=== PATIENT | female | born 1965 | race Caucasian/White ===

== ENCOUNTER 2017-02-14 13:57 | Inpatient (IN) | payer BC ==
[~2017-02-14] VITALS: Ht 165.1 cm; Wt 101.9 kg
[2017-03-13] VITALS (15 sets, daily range): BP systolic 107–132; BP diastolic 68–83; PULSE 84–104; TEMP 97.5–98.7
[2017-03-13] MEDS ORDERED: TYLENOL 325MG325 MG PO (06:35)
[2017-03-13] MEDS ORDERED: NATURE'S BLEND600 M2 PO (06:35)
[2017-03-13] MEDS ORDERED: ASPIRIN E.C. 8181 MG PO (06:36)
[2017-03-13] MEDS ORDERED: FLAX OIL1000 MG PO (06:37)
[2017-03-13] MEDS ORDERED: ZESTRIL 20MG TA20 MG PO (06:38)
[2017-03-13] MEDS ORDERED: SYNTHROID0.05 MG/TA PO (06:38)
[2017-03-13] MEDS ORDERED: LOPRESSOR 225 MG/TAB PO (06:39)
[2017-03-13] MEDS ORDERED: PERCOCET 325 MG1 TA2 PO (06:40)
[2017-03-13 07:01] LABS: ADJUSTED CALCIUM 9.2 mg/dL (8.4-10.2); ALBUMIN 4.5 gm/dL (3.5-5.0); BILIRUBIN,TOTAL 0.7 mg/dL (0.0-1.0); CALCIUM 9.6 mg/dL (8.4-10.2); CREATININE, serum 0.61 mg/dL (0.52-1.25); HEMATOCRIT 42.7 % (37.0-47.0); HEMOGLOBIN 13.8 g/dl (12.5-16.0); MEAN CELL VOLUME 88 fl (80.0-100.0); MEAN CORPUSCULAR HEMOGLOBIN 29 pg (27.0-31.0); MEAN CORPUSCULAR HGB CONC 32 g/dl (33.0-37.0); MEAN PLATELET VOLUME 10.7 fl (7.4-10.4); PLATELET COUNT 358 K/mm3 (130-400); POTASSIUM 4.3 mmol/L (3.4-5.0); RED BLOOD COUNT 4.85 M/mm3 (4.10-5.30); TOTAL PROTEIN 7.5 gm/dL (6.4-8.2); WHITE BLOOD COUNT 10.1 K/mm3 (4.8-10.8)
[2017-03-13 15:16] LABS: BASO # 0.1 (0.0-0.2); BASO % 0.4 % (0.0-2.0); GRAN # 15.5 (1.4-6.5); GRAN % 93.7 % (42.2-75.2); HEMOGLOBIN 13.7 g/dl (12.5-16.0); LYMPH # 0.6 (1.2-3.4); LYMPH % 3.8 % (20.0-51.0); MEAN CELL VOLUME 87 fl (80.0-100.0); MEAN CORPUSCULAR HEMOGLOBIN 29 pg (27.0-31.0); MEAN CORPUSCULAR HGB CONC 33 g/dl (33.0-37.0); MEAN PLATELET VOLUME 10.1 fl (7.4-10.4); MONO # 0.3 (0.1-0.6); MONO % 1.6 % (1.7-9.3); PLATELET COUNT 319 K/mm3 (130-400); RED BLOOD COUNT 4.81 M/mm3 (4.10-5.30); WHITE BLOOD COUNT 16.5 K/mm3 (4.8-10.8)
[2017-03-14] VITALS (9 sets, daily range): BP systolic 103–117; BP diastolic 48–72; PULSE 72–95; TEMP 97.6–98.7
[2017-03-14 07:26] LABS: BASO # 0.1 (0.0-0.2); BASO % 0.4 % (0.0-2.0); EOS # 0.3 (0.0-0.7); EOS % 2.2 % (0-4.0); GRAN # 12.7 (1.4-6.5); GRAN % 82.3 % (42.2-75.2); HEMATOCRIT 39.9 % (37.0-47.0); HEMOGLOBIN 12.9 g/dl (12.5-16.0); LYMPH # 1.3 (1.2-3.4); LYMPH % 8.1 % (20.0-51.0); MEAN CELL VOLUME 88 fl (80.0-100.0); MEAN CORPUSCULAR HEMOGLOBIN 28 pg (27.0-31.0); MEAN CORPUSCULAR HGB CONC 32 g/dl (33.0-37.0); MEAN PLATELET VOLUME 10.6 fl (7.4-10.4); MONO % 6.4 % (1.7-9.3); PLATELET COUNT 299 K/mm3 (130-400); RED BLOOD COUNT 4.54 M/mm3 (4.10-5.30); WHITE BLOOD COUNT 15.4 K/mm3 (4.8-10.8)
[2017-03-14 07:46] LABS: CALCIUM 8.8 mg/dL (8.4-10.2); CREATININE, serum 0.89 mg/dL (0.52-1.25); POTASSIUM 4.4 mmol/L (3.4-5.0)
[2017-03-15 05:18] VITALS: BP 118/62; PULSE 90; TEMP 98.2
[2017-03-15 09:57] VITALS: BP 119/60; PULSE 92; TEMP 97.5
[2017-03-15 13:11] VITALS: BP 127/67; PULSE 98; TEMP 98.2
[2017-03-15 15:15] VITALS: BP 112/71
[2017-03-15 17:45] VITALS: BP 102/53; PULSE 88; TEMP 97.7
[2017-03-15 19:30] VITALS: BP 93/56
[2017-03-16 02:20] VITALS: BP 105/58; PULSE 86; TEMP 98
[2017-03-16 05:35] VITALS: BP 111/53; PULSE 80; TEMP 98.1
[2017-03-16 09:51] VITALS: BP 121/75; PULSE 87
== END 2017-03-16 13:10 | disposition home or self-care (01) | DRG 661 ==
LOC: SURG 03-12 07:30 → INPTSU 03-13 05:19 → SURG 03-13 05:19
PROVIDERS: Nurse Anesthetist, Certified Registered; Urology
PROC: 0TT00ZZ Resection of Right Kidney, Open Approach (ICD-10-PCS; principal; 2017-03-13 07:30)
DX: N28.1 Cyst of kidney, acquired (principal); I10 Essential (primary) hypertension
CPT/HCPCS: A4314; A4315; A9284; J0690; J1100; J1170; J1650; J2270; J2405; J2704; J3010; J3480; J7120

== ENCOUNTER → 2017-03-11 | Outpatient (CLI) | payer BC ==
[~2017-03-11] MED LIST: ASPIRIN E.C. 8181 MG PO; FLAX OIL1000 MG PO; LOPRESSOR 225 MG/TAB PO; NATURE'S BLEND600 M2 PO; PERCOCET 325 MG1 TA2 PO; SYNTHROID0.05 MG/TA PO; TYLENOL 325MG325 MG PO; ZESTRIL 20MG TA20 MG PO
== END ==
LOC: COL.LAB 11:13
DX: Z01.812 Encounter for preprocedural laboratory examination (principal); N28.1 Cyst of kidney, acquired

== ENCOUNTER 2021-08-01 13:18 | Observation (INO) | payer OTHER ==
[~2021-08-01] VITALS: Ht 165.1 cm; Wt 104.5 kg
[2021-08-01] MEDS ORDERED: MULTI VITAMINS1 TAB PO (13:39)
[2021-08-01] MEDS ORDERED: VITAMIN D 50,1.25 MG PO (13:39)
[2021-08-01 14:37] LABS: BASO # 0.1 K/mm3 (0.0-0.2); BASO % 0.4 % (0.0-2.0); EOS # 0.2 K/mm3 (0.0-0.7); GRAN # 11.1 K/mm3 (1.4-6.5); GRAN % 73.1 % (42.2-75.2); HEMATOCRIT 43.7 % (37.0-47.0); HEMOGLOBIN 14.5 g/dl (12.5-16.0); LYMPH # 2.9 K/mm3 (1.2-3.4); LYMPH % 19.3 % (20.0-51.0); MEAN CELL VOLUME 86 fl (80.0-100.0); MEAN CORPUSCULAR HEMOGLOBIN 29 pg (27-31); MEAN CORPUSCULAR HGB CONC 33 g/dl (33.0-37.0); MEAN PLATELET VOLUME 10.7 fl (7.4-10.4); MONO # 0.9 K/mm3 (0.1-0.6); MONO % 5.8 % (1.7-9.3); PLATELET COUNT 371 K/mm3 (130-400); RED BLOOD COUNT 5.07 M/mm3 (4.10-5.30); REDCELL DISTRIBUTION WIDTH-CV 13.2 % (11.5-14.5)
[2021-08-01 14:52] LABS: ALBUMIN 3.8 gm/dL (3.5-5.0); BILIRUBIN,TOTAL 0.6 mg/dL (0.2-1.2); CREATININE, serum 0.82 mg/dL (0.57-1.11); POTASSIUM 3.7 mmol/L (3.5-4.5); TOTAL PROTEIN 7.7 gm/dL (6.2-8.1)
[2021-08-01 16:00] VITALS: BP 151/81; PULSE 81; TEMP 98.5
[2021-08-01 16:27] VITALS: BP 110/56; PULSE 102; TEMP 99
--- NOTE | 2021-08-01 18:23 | NUR ---
Pt has had minimal pain to RLQ after arrival to the floor. 20g started to R hand, IVF started. POC discussed with patient, to have surgery tomorrow AM. Clear liquids offered. No needs at this time. Call light within reach.
[2021-08-01 19:46] VITALS: BP 115/63; PULSE 104; TEMP 99.5
[2021-08-02] VITALS (11 sets, daily range): BP systolic 107–151; BP diastolic 61–85; PULSE 81–101; TEMP 98.4–99
--- NOTE | 2021-08-02 03:29 | NUR ---
Report received from day shift nurse, PAULINA Griffith. Patient has been pleasant throughout the shift and is A&Ox3. Full body assessment completed and vital signs have been WNL. Patient has not complained of pain thus far this shift, however she says that she does feel "bloated". IV fluids currently running, patient has been tolerating IV zosyn well. Patient scheduled for possible surgery on 08/02/21. No other complaints at this time, call light within reach.
[2021-08-02 06:20] LABS: HEMATOCRIT 38.5 % (37.0-47.0); HEMOGLOBIN 12.9 g/dl (12.5-16.0); MEAN CELL VOLUME 85 fl (80.0-100.0); MEAN CORPUSCULAR HEMOGLOBIN 29 pg (27-31); MEAN CORPUSCULAR HGB CONC 34 g/dl (33.0-37.0); MEAN PLATELET VOLUME 10.7 fl (7.4-10.4); PLATELET COUNT 323 K/mm3 (130-400); RED BLOOD COUNT 4.51 M/mm3 (4.10-5.30); REDCELL DISTRIBUTION WIDTH-CV 13.2 % (11.5-14.5)
[2021-08-02 06:40] LABS: CALCIUM 8.6 mg/dL (8.4-10.2); CREATININE, serum 0.78 mg/dL (0.57-1.11); POTASSIUM 3.5 mmol/L (3.5-4.5)
--- NOTE | 2021-08-02 08:00 | NUR ---
Pt doing well this morning. She states that the pain is not too bad right now and denies needing anything for pain. Pt was a little tearful regarding the surgery, states she is just nervoud about it. No other needs, call light within reach
--- NOTE | 2021-08-02 09:15 | NUR ---
Initial visit; Patient thanked Loom Mechanic for offering God's blessings and to keep her in Loom Mechanic's prayers. Loom Mechanic will follow up.
--- NOTE | 2021-08-02 10:18 | NUR ---
Pt off the floor for surgery
--- NOTE | 2021-08-02 11:40 | NUR ---
Patient down in surgery. Will attempt intake at a later time.
--- NOTE | 2021-08-02 14:08 | NUR ---
PT arrived back on the floor from surgery. She is alert and oriented although drowsy. She does wake to speech. Pts is at bedside, he did talk to Dr Barrett downstairs prior to coming up. Lap sites x 4 to abd all with edges well approximated, no redness or drainage. SCDs on bilaterally. Call light within reach
--- NOTE | 2021-08-02 17:30 | NUR ---
Pt has done well. She is has some pain complaints, but states it is tolerable. She has been up to the restroom and was steady on her feet, just moving slow. Pt is tolerating clear liquids.
--- NOTE | 2021-08-02 19:14 | NUR ---
RECEIVED CHANGE OF SHIFT REPORT FROM DAY SHIFT RN.
--- NOTE | 2021-08-02 20:32 | NUR ---
PATIENT REPORTED SOME TINGLING TO L HAND THAT SUBSIDED AFTER MOVEMENT OF BACK THAT HAS HAD IN PAST, WANTING TO USE HEATING PAD, BROUGHT IN FROM HOME STATING "THE DOCTOR SAID IT WAS OKAY TO USE" WHILE SHE WAS IN THE HOSPITAL. PATIENT CONTINUES TO SIT UP IN CHAIR.
[2021-08-03 00:04] VITALS: BP 114/58; PULSE 89; TEMP 98.1
--- NOTE | 2021-08-03 04:18 | NUR ---
REPORTS FLATUS PASSED, DENIES DISCOMFORT AT THIS TIME. IVF INFUSING WITH NO PROBLEMS
[2021-08-03 04:33] VITALS: BP 119/71; PULSE 80; TEMP 97.7
[2021-08-03 06:36] LABS: HEMOGLOBIN 12.1 g/dl (12.5-16.0); MEAN CELL VOLUME 88 fl (80.0-100.0); MEAN CORPUSCULAR HEMOGLOBIN 29 pg (27-31); MEAN CORPUSCULAR HGB CONC 33 g/dl (33.0-37.0); MEAN PLATELET VOLUME 11.2 fl (7.4-10.4); PLATELET COUNT 323 K/mm3 (130-400); RED BLOOD COUNT 4.21 M/mm3 (4.10-5.30); REDCELL DISTRIBUTION WIDTH-CV 13.2 % (11.5-14.5)
[2021-08-03 06:40] LABS: HEMATOCRIT 36.9 % (37.0-47.0)
[2021-08-03 06:55] LABS: C-REACTIVE PROTEIN 2.44 mg/dL (0.00-0.50); CALCIUM 8.4 mg/dL (8.4-10.2); CREATININE, serum 0.75 mg/dL (0.57-1.11); POTASSIUM 3.7 mmol/L (3.5-4.5)
--- NOTE | 2021-08-03 07:14 | NUR ---
CHANGE OF SHIFT REPORT GIVEN TO DAY SHIFT RNАНДРЕЙ.
[2021-08-03 07:39] VITALS: BP 142/77; PULSE 80; TEMP 98.5
--- NOTE | 2021-08-03 09:30 | NUR ---
Pt doing well this morning, reports having a good night, pain is tolerable. Pt is aware that she is going to be having a CT scan which she is aware of
--- NOTE | 2021-08-03 09:44 | NUR ---
sheet metal layout worker met with patient to discuss discharge plan. Patient currently lives on a farm outside of [place] with her Marvin ([phone]). Patient reports that she is independent and very active on the farm. She does not utilize any DME to assist with mobility. Patient has no home oxygen needs. PCP is Dr. Navarro and she utilizes [facility] for medications. Patient reports that she does not have a DPOA-HC established. Education provided and patient does not wish to complete one at this time. Patient is planning on returning home with her . States that Marvin is taking a few weeks off to help with her healing. Discharge plan: Home
--- NOTE | 2021-08-03 10:33 | NUR ---
Pt doing well this morning. She has recently had bowel movement, but specimen did not make it in the hat. It was loose and appeared to have some blood in it. Pt reports pain is tolerable. Pt down in CT now
--- NOTE | 2021-08-03 10:38 | NUR ---
Follow-up visit; Patient saw District Agent and was able to shed a few tears. Kelin's emotions were confusing to her but she and District Agent attributed them to the fear and all that goes with hospitalization and relief that she is about to go home. She thanked District Agent for the hug she asked for and listening and wishing her well.
[2021-08-03 12:00] VITALS: BP 106/59; PULSE 71; TEMP 98.6
[2021-08-03 15:42] VITALS: BP 104/57; PULSE 74; TEMP 98.7
[2021-08-03] MEDS ORDERED: LEVAQUIN 750MG750 M1 PO (16:44)
[2021-08-03] MEDS ORDERED: FLAGYL500 MG PO (16:44)
--- NOTE | 2021-08-03 17:07 | NUR ---
Reviewed discharge instructions with pt and her to include follow up appointments and prescriptions. Gave information on low fiber diet. INT removed from right hand, informed she can get dressed and we will escort her out
--- NOTE | 2021-08-03 17:24 | NUR ---
Pt escorted out
== END 2021-08-03 17:24 | disposition home or self-care (01) ==
LOC: SURG 13:18
PROVIDERS: ADMIT Surgery
DX: K43.0 Incisional hernia with obstruction, without gangrene (principal); K52.9 Noninfective gastroenteritis and colitis, unspecified; E66.01 Morbid (severe) obesity due to excess calories; I10 Essential (primary) hypertension; Z68.38 Body mass index [BMI] 38.0-38.9, adult
CPT/HCPCS: G0378; J0690; J1100; J1170; J2370; J2405; J2543; J2704; J2710; J3010; J7120; Q9967

== ENCOUNTER 2021-08-11 09:39 | Day surgery (SDC) | payer OTHER ==
[~2021-08-11] VITALS: Ht 163.8 cm; Wt 103.5 kg
[~2021-08-11 09:39] MED LIST changes: +FLAGYL500 MG PO; +LEVAQUIN 750MG750 M1 PO; +MULTI VITAMINS1 TAB PO; +VITAMIN D 50,1.25 MG PO
[2021-08-11 13:35] VITALS: BP 117/59; PULSE 79; TEMP 97.4
--- NOTE | 2021-08-11 13:35 | NUR ---
Pt arrived from procedure drowsy but oriented. Maria Del Rosario GALLARDO assisted with pt ambulation from cart to chair. Verbal report obatined. Vitals obtained. Per report: pt is to continue clear liquid diet until otherwise directed. Call herndon remains within reach. Pt provided ice water and orange jello.
[2021-08-11 13:50] VITALS: BP 114/65; PULSE 82
--- NOTE | 2021-08-11 13:50 | NUR ---
Vitals obtained. Pt denies nausea. Call herndon remains within reach.
[2021-08-11 14:05] VITALS: BP 116/70; PULSE 78
--- NOTE | 2021-08-11 14:05 | NUR ---
Vitals obtained and pt expressed desire to be discharged. Call herndon remains within reach.
--- NOTE | 2021-08-11 14:10 | NUR ---
IV discontinued. Catheter tip intact. Pressure bandage applied NO redness or swelling noted. DC instructions and educational material reviewed with the pt, who verbalized understanding and signed the related paperwork. Pt denied questions or concerns. Pt denied needing assistance changing into personal clothes.
--- NOTE | 2021-08-11 14:22 | NUR ---
Pt dismissed from endo via wheelchair by Meg GALLARDO. Pt has DC packet and personal belongings. Pt transferred into the care of her , who is present to drive.
[2021-08-11 16:50] VITALS: BP 144/89; PULSE 81; TEMP 98.2
== END 2021-08-11 14:20 | disposition home or self-care (01) ==
LOC: SDCO 09:39
DX: D12.0 Benign neoplasm of cecum (principal); K63.5 Polyp of colon; R93.3 Abnormal findings on diagnostic imaging of other parts of digestive tract; K52.9 Noninfective gastroenteritis and colitis, unspecified; E66.01 Morbid (severe) obesity due to excess calories; Z90.49 Acquired absence of other specified parts of digestive tract
CPT/HCPCS: J2704; J7030